=== PATIENT | male | born 1980 ===

== ENCOUNTER 2024-11-20 10:56 | Outpatient (REF) | payer OTHER, SELFPAY ==
--- NOTE | ~2024-11-20 | XR_ITS ---
EXAMINATION: XR SHOULDER 2 OR MORE VIEWS LEFT HISTORY: S43.002A - Unspecified subluxation of left shoulder joint, initial COMPARISON: There are no prior studies available for comparison. FINDINGS: Two views of the left shoulder are submitted. Osseous mineralization is normal. There is no fracture or dislocation. The glenohumeral and acromioclavicular joint spaces are preserved. The soft tissues are unremarkable. XR/XR shoulder LT min 2V IMPRESSION: Unremarkable examination of the left shoulder. Electronically signed by: Juve Phillips MD 11/20/2024 01:40 PM EDT
== END 2024-11-20 10:57 | disposition home or self-care (01) ==
LOC: HO.HOSX 10:56
PROVIDERS: PCP Internal Medicine; Visit Provider Physical Medicine & Rehabilitation
DX: S43.002A Unspecified subluxation of left shoulder joint, initial encounter (principal); S46.002A Unspecified injury of muscle(s) and tendon(s) of the rotator cuff of left shoulder, initial encounter; M79.18 Myalgia, other site
CPT/HCPCS: 73030; 99202

== ENCOUNTER 2024-11-20 10:56 | Outpatient (AMB) | payer OTHER, SELFPAY ==
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
[2024-11-20 11:07] VITALS: BMI 28.9
== END 2024-11-20 11:57 | disposition home or self-care (01) ==
LOC: HO.HOS 10:56
PROVIDERS: PCP Internal Medicine; Visit Provider Physical Medicine & Rehabilitation
DX: S43.002A Unspecified subluxation of left shoulder joint, initial encounter (principal); S46.002A Unspecified injury of muscle(s) and tendon(s) of the rotator cuff of left shoulder, initial encounter; M79.18 Myalgia, other site; Z04.2 Encounter for examination and observation following work accident
CPT/HCPCS: 99204

== ENCOUNTER → 2024-11-20 11:53 | Outpatient (BNV) | payer OTHER, SELFPAY | PROVIDERS: PCP Internal Medicine; Visit Provider Radiology Diagnostic Radiology | DX: S43.002A Unspecified subluxation of left shoulder joint, initial encounter (principal) | CPT/HCPCS: 73030 ==

== ENCOUNTER 2024-12-31 10:53 | Outpatient (AMB) | payer OTHER, SELFPAY ==
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
--- OUTSIDE RECORDS SUMMARY | 2024-12-31 12:25 | XMS_ITS | Clinical Summary ---
Author Organization Patient Business [facility] Address [address] [place] [address] Care Team Providers Care Senior Risk Analyst Name Role Phone Luis Moyer MD Primary Care Provider [phone] Allergies No known active allergies Medications albuterol HFA (PROAIR HFA ; PROVENTIL HFA ; VENTOLIN HFA) 90 mcg/actuation inhaler Inhale 2 Puffs into the lungs every 6 hours as needed for Cough, Wheezing or Shortness of Breath. 1 inhaler and 11 refills 4 07/19/20 25 Active cyclobenzaprine (FLEXERIL) 5 mg tablet Take 1 Tablet by mouth at bedtime as needed for Muscle spasms. May cause dizziness, sedation. Do not drive or operate heavy machinery on this medication. 4 Active erythromycin 5 mg/gram (0.5 %) ophthalmic ointment Apply to affected eye twice daily for 7 days. 4 Active ibuprofen (ADVIL,MOTRIN) 800 mg tablet Take 1 Tablet by mouth every 8 hours as needed for Pain. 4 Active Active Problems Problem Noted Date Diagnosed Date Overweight (BMI 25.0-29.9) 06/27/2020 Surgical History Surgery Date Site/Laterality Comments WISDOM TOOTH EXTRACTION PROCEDURE: HISTORICAL WISDOM TEETH EXTRACTION Family History Medical History Relation Name Comments Other: unknown cancer Aunt maternal Other: unknown cancer Paternal Grandmother Relation Name Status Comments Aunt maternal Alive Brother x 4 Alive Father Alive Maternal Grandfather Maternal Grandmother Mother Alive Paternal Grandfather Paternal Grandmother Sister x 1 Alive Social History Tobacco Use Types Packs/Day Years Used Date Smoking Tobacco: Never Smokeless Tobacco: Never Alcohol Use Standard Drinks/Week Comments Not Currently 0 (1 standard drink = 0.6 oz pur e alcohol) Sex and Gender Information Value Date Recorded Sex Assigned at Not on file Legal Sex Male 10:19 PM EST Gender Identity Not on file Sexual Orientation Not on file Obstetrics History Last Filed Vital Signs Vital Sign Reading Time Taken Comments Blood Pressure 112/79 06/18/2024 3:19 PM EDT Pulse 77 06/18/2024 3:19 PM EDT Temperature - - Respiratory Rate - - Oxygen Saturation - - Inhaled Oxygen Concentration - - Weight 89.9 kg (198 lb 1.6 oz) 05/14/2024 10:40 AM EDT Height 175.3 cm (5' 9 ) 05/14/2024 10:40 AM EDT Body Mass Index 29.25 05/14/2024 10:40 AM EDT Plan of Treatment Upcoming Encounters Date Type Department Care Team (Late st Contact Info) Description 01/06/2025 5:00 PM EDT Office Visit Adult Medicine [facility] [address] [place] [phone] Kim Mares PA [address] [place] [id number] Health Maintenance Due Date Last Done Comments DTaP,Tdap,and Td Vaccines (1 - Tdap) 1998 Hepatitis B Vaccines (1 of 3 - 19+ 3-dose series) 1998 Colorectal Cancer Screening: Colonoscopy 07/03/2020 Depression Screening 07/03/2020 HIV Screening 07/03/2020 Hepatitis C Screening 07/03/2020 Social Influencers of Health Screening 07/03/2020 COVID-19 Vaccine ( - 2023-2 5 season) 2024 Influenza Vaccine (Season Ended) 2025 Cholesterol Screening (Lipid Panel) 06/27/2025 06/27/2020 HIB Vaccines Aged Out No longer eligi ble based on patient's age to complete this topic HPV Vaccines Aged Out No longer eligi ble based on patient's age to complete this topic Hepatitis A Vaccines Aged Out No long er eligible based on patient's age to complete this topic IPV Vaccines Aged Out No longer eligi ble based on patient's age to complete this topic MMR Vaccines Aged Out No longer eligi ble based on patient's age to complete this topic Meningococcal ACWY Vaccine Aged Out N o longer eligible based on patient's age to complete this topic Meningococcal B Vaccine Aged Out No l onger eligible based on patient's age to complete this topic Pneumococcal Vaccine: Pediat rics (0 to 5 Years) and At-Risk Patients (6 to 64 Years) Aged Out No longer eligi ble based on patient's age to complete this topic RSV Immunization Patients Un evette 20 months Aged Out No longer eligible b ased on patient's age to complete this topic Varicella Vaccines Aged Out No longer eligible based on patient's age to complete this topic Procedures Procedure Name Priority Date/Time Associated Diagnosis Comments LIPID PANEL Routine 06/27/2020 from Last 3 Months or Most Recently Relevant to Health Maintenance Results * Lipid panel (06/27/2020) LDL/HDL Ratio 3 0 - 4 Triglycerides 86 0 - 150 mg/dL Cholesterol 128 0 - 200 mg/dL HDL 40 >=40 mg/dL LDL Cholesterol 71 0 - 100 mg/dL Blood Venous blood specimen / Unknown Historical Provider LAB BLOOD ORDERABLES Bri l Result from Last 3 Months or Most Recently Relevant to Health Maintenance Insurance [address] [address] [place] [address] [employer]ALTH PLAN Care Teams Senior Risk Analyst Relationship Specialty Start Date End Date Luis Moyer MD [address] [place] [address] [phone] PCP - General Internal Medicine 11/24/21
== END 2024-12-31 11:26 | disposition home or self-care (01) ==
PROVIDERS: PCP Internal Medicine; Visit Provider Physical Medicine & Rehabilitation
DX: M75.22 Bicipital tendinitis, left shoulder (principal); M79.18 Myalgia, other site
CPT/HCPCS: 99214

== ENCOUNTER → 2024-12-31 10:53 | Outpatient (BNVA) | payer OTHER, SELFPAY | PROVIDERS: PCP Internal Medicine; Visit Provider Physical Medicine & Rehabilitation | DX: M75.22 Bicipital tendinitis, left shoulder (principal); M79.18 Myalgia, other site | CPT/HCPCS: 99212 ==

== ENCOUNTER 2025-02-05 11:17 | Outpatient (AMB) | payer OTHER, SELFPAY ==
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
[2025-02-05 11:21] VITALS: BMI 28.9
--- OUTSIDE RECORDS SUMMARY | 2025-02-05 12:20 | XMS_ITS | Clinical Summary ---
Author Organization Patient Business [facility] Address [address] [place] [address] Care Team Providers Care City Carrier Name Role Phone Luis Moyer MD Primary Care Provider [phone] Allergies No known active allergies Medications albuterol [...] Date Diagnosed Date Overweight (BMI 25.0-29.9) 06/27/2020 Encounters Date Type Department Care Team Description 01/06/2025 5:00 PM EDT Office Visit Adult Medicine [address] [phone] Kim Mares PA Blood pressure check (Primary Dx) from Last 3 Months Surgical History Surgery Date Site/Laterality Comments WISDOM [...] Date Smoking Tobacco: Never Smokeless Tobacco: Never Tobacco Cessation:Counseling Given: Not Answered Alcohol Use Standard Drinks/Week Comments Not Currently 0 (1 standard drink = 0.6 oz pur e alcohol) Sex and Gender Information Value Date Recorded Sex Assigned at Not on file Legal Sex Male 10:19 PM EST Gender Identity Not on file Sexual Orientation Not on file Obstetrics History Last Filed Vital Signs Vital Sign Reading Time Taken Comments Blood Pressure 102/66 01/06/2025 4:46 PM EDT Pulse 78 01/06/2025 4:31 PM EDT Temperature 36.6 ??C (97.9 ??F) 01/06/2025 4:31 PM ED T Respiratory Rate - - Oxygen Saturation 98% 01/06/2025 4:31 PM EDT Inhaled Oxygen Concentration - - Weight 92.7 kg (204 lb 4.8 oz) 01/06/2025 4:31 P M EDT Height 175.3 cm (5' 9.02 ) 01/06/2025 4:31 PM ED T Body Mass Index 30.16 01/06/2025 4:31 PM EDT Plan of Treatment Upcoming Encounters Date Type Department Care Team (Late st Contact Info) Description 02/18/2025 4:30 PM EDT Office Visit Adult Medicine [address] [phone] Kim Mares PA [address] [place] [phone] Health Maintenance Due Date Last Done Comments DTaP,Tdap,and Td Vaccines (1 - Tdap) 1998 Hepatitis B Vaccines (1 of 3 - 19+ 3-dose series) 1998 Colorectal Cancer Screening: Colonoscopy 07/03/2020 Depression Screening 07/03/2020 HIV Screening 07/03/2020 Hepatitis C Screening 07/03/2020 Social Influencers of Health Screening 07/03/2020 COVID-19 Vaccine (2023-2 5 season) 2024 Influenza Vaccine (Season Ended) [...] mg/dL Blood Venous blood specimen / Unknown us Historical Provider LAB BLOOD ORDERABLES Bri l Result from Last 3 Months or Most Recently Relevant to Health Maintenance Insurance [facility] [employer] Care Teams City Carrier Relationship Specialty Start Date End Date Luis Moyer MD [address] [place] [address] [phone] PCP - General Internal Medicine 07/19/21
== END 2025-02-05 11:49 | disposition home or self-care (01) ==
LOC: HO.HOS 11:18
PROVIDERS: PCP Internal Medicine; Visit Provider Physical Medicine & Rehabilitation
DX: M54.2 Cervicalgia (principal); M79.18 Myalgia, other site
CPT/HCPCS: 20552; 99213

== ENCOUNTER → 2025-02-05 11:17 | Outpatient (BNVA) | payer OTHER, SELFPAY | PROVIDERS: PCP Internal Medicine; Visit Provider Physical Medicine & Rehabilitation | DX: M25.512 Pain in left shoulder (principal); M79.18 Myalgia, other site | CPT/HCPCS: 20552; 99212; J2003 ==

== ENCOUNTER 2025-02-12 10:17 | Outpatient (AMB) | payer OTHER, SELFPAY ==
[2025-02-12 10:22] VITALS: BMI 28.9
--- NOTE | 2025-02-12 10:22 | MHC.OFFVIS ---
Vital Signs 02/12/25 10:22 Height 5 ft 9 in Weight 196 lb BMI 28.9 Intake Visit Reasons: OV LT SHRD/back/neck sprain Injection #2 Intake Note: Phillip is a 44 year old male right hand dominant who presents today for a left shoulder, back and neck sprain injection #2. Patient reports that his pain has improved since his last visit. Allergies No Known Allergies Allergy (Verified 02/12/25 10:24) Medication List - Last Reconciled 02/12/25 by Kecia Arguello MD albuterol sulfate 90 mcg/actuation (Ventolin HFA) 2 puffs inhalation Q6H PRN cyclobenzaprine 10 mg PO BEDTIME PRN ibuprofen 800 mg PO Q8H PRN HPI Comments Details: Patient had good improvement after last injection. 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 Consent obtained. 2 Trigger points palpated on right upper trapezius. Needling performed with gauge 27 needle, subsequently injecting 1 ml of 2% Lidocaine., total of 2 mL. Patient tolerated procedure well. Post-injection instructions given. 03154-[id number] Point Injection 1 or 2 sites All charges added?: Procedure code (CPT) selection complete Assessment & Plan Assessment & Plan (1) Myofascial pain: Code(s): M79.18 - Myalgia, other site Category: Medical Plan So far good improvement from last injection. Patient tolerated today's procedure well. Assessment and plan discussed with patient, and patient was agreeable. All questions were answered thoroughly. Kecia Arguello MD, KAREN Board Certified, [place] [employer] and [employer] (ABPMR) Board Certified, [place] [employer] Electrodiagnostic [employer] (ABEM) Orders: Orders AMB Trigger Point Injection Today M79.18 - Myalgia, other site Coding Level of Care Code Procedure Only Diagnoses Myofascial pain M79.18 CPT Codes Therapeutic Injection - Ther Injection 1: 23750-Buyjzfx Point Injection 1 or 2 sites ([id number])
--- OUTSIDE RECORDS SUMMARY | 2025-02-12 10:35 | XMS_ITS | Clinical Summary ---
Author Organization Patient Business [facility] Address [address] [place] [address] Care Team Providers Care Pattern Stamper Name Role Phone Luis Moyer MD Primary Care Provider [phone] Allergies No known active allergies Medications albuterol [...] 5:00 PM EDT Office Visit Adult Medicine [address] [phone] Kim Mares PA Blood pressure check (Primary [...] 78 01/06/2025 4:31 PM EDT Temperature 36.6 C (97.9 F) 01/06/2025 4:31 PM EDT Respiratory Rate - - Oxygen Saturation 98% [...] 4:30 PM EDT Office Visit Adult Medicine [address] [phone] Kim Mares PA [address] [place] [phone] Health Maintenance Due Date Last Done Comments [...] Most Recently Relevant to Health Maintenance Insurance [employer] Care Teams Pattern Stamper Relationship Specialty Start Date End Date Luis Moyer MD [address] [place] [address] [id number] PCP - General Internal Medicine 07/19/21
== END 2025-02-12 10:52 | disposition home or self-care (01) ==
LOC: HO.HOS 10:18
PROVIDERS: PCP Internal Medicine; Visit Provider Physical Medicine & Rehabilitation
DX: M79.18 Myalgia, other site (principal)
CPT/HCPCS: 20552

== ENCOUNTER → 2025-02-12 10:17 | Outpatient (BNVA) | payer OTHER, SELFPAY | PROVIDERS: PCP Internal Medicine; Visit Provider Physical Medicine & Rehabilitation | DX: M79.18 Myalgia, other site (principal) | CPT/HCPCS: 20552; J2003 ==

== ENCOUNTER 2025-02-19 10:53 | Outpatient (AMB) | payer OTHER, SELFPAY ==
[2025-02-19 11:09] VITALS: BMI 28.9
--- NOTE | 2025-02-19 11:09 | A.OFFVIS_ITS ---
Vital Signs 02/19/25 11:09 Height 5 ft 9 in Weight 196 lb BMI 28.9 Intake Visit Reasons: OV LT SHRD/back/neck sprain Injection #3 Intake Note: Phillip is a 44 year old male who presents today as a follow up for a left shoulder, back and neck pain trigger Injection #3. Patient states that from the last injection he is feeling better, mild to no pain to report at this visit. Allergies No Known Allergies Allergy (Verified 02/19/25 11:15) Medication List - Last Reconciled 02/19/25 by Kecia Arguello MD albuterol sulfate 90 mcg/actuation (Ventolin HFA) 2 puffs inhalation Q6H PRN cyclobenzaprine 10 mg PO BEDTIME PRN ibuprofen 800 mg PO Q8H PRN HPI Comments Details: Resolved left-sided neck pain. Feeling better and sleeping better. 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 No more palpable trigger point on left upper trapezius anymore. 1 mL of 2% lidocaine injected in the general area of previous tenderness over left upper trapezius using a gauge 27 needle. Patient tolerated procedure well. Post-injection instructions given. [id number]-[id number] Point Injection 1 or 2 sites All charges added?: Procedure code (CPT) selection complete Assessment & Plan Assessment & Plan (1) Myofascial pain: Code(s): M79.18 - Myalgia, other site Category: Medical Plan Patient did very well. Issue resolved. Assessment and plan discussed with patient, and patient was agreeable. All ques tions were answered thoroughly. Kecia Arguello MD, KAREN Board Certified, [place] [employer] (ABPMR) Board Certified, [place] [employer] Electro[employer] (ABEM) Orders: Orders AMB Trigger Point Injection Today M79.18 - Myalgia, other site Coding Level of Care Code Procedure Only Diagnoses Myofascial pain M79.18 CPT Codes Therapeutic Injection - Ther Injection 1: 79865-Jvolpjq Point Injection 1 or 2 sites ([id number])
== END 2025-02-19 11:23 | disposition home or self-care (01) ==
LOC: HO.HOS 10:54
PROVIDERS: PCP Internal Medicine; Visit Provider Physical Medicine & Rehabilitation
DX: M79.18 Myalgia, other site (principal)
CPT/HCPCS: 20552

== ENCOUNTER → 2025-02-19 10:53 | Outpatient (BNVA) | payer OTHER, SELFPAY | PROVIDERS: PCP Internal Medicine; Visit Provider Physical Medicine & Rehabilitation | DX: M79.18 Myalgia, other site (principal) | CPT/HCPCS: 20552; J2003 ==